=== PATIENT | female | born 1955 | race African-American/Black ===

== ENCOUNTER 2023-03-03 14:12 | Emergency (ER) | payer OTHER, SELFPAY ==
[2023-03-03 14:16] VITALS: BP 182/84; PULSE 97; RESP 20; TEMP 37.1; O2SAT 100; BMI 21.3
--- NOTE | 2023-03-03 14:31 | ED.DENTAL1 ---
HPI - Dental/Oral General Chief complaint: Dental/Oral Stated complaint: DENTAL PAIN Time Seen by Provider: 03/03/23 14:24 Source: patient Mode of arrival: walk-in Limitations: no limitations History of Present Illness HPI Narrative: patient is a 67-year-old female who presents to the emergency department for intermittent pain in the left upper jaw in tooth #16 for the last month. She states pain has been coming and going. Documentation shows that she felt a prescription of clindamycin from a dentist for a toothache in December, she states she does not currently have a dentist. She states [facility] was supposed to pull her tooth but they never did. She states for the last month she has had intermittent pain to the area. No drainage, no facial swelling or fevers. No difficulty swallowing. Related Data Previous Rx's Medication Instructions Recorded amoxicillin 500 mg capsule 500 mg PO TID 10 days #30 caps 03/03/23 tramadol 50 mg tablet 50 mg PO Q4H PRN pain #15 tabs 03/03/23 Allergies Allergy/AdvReac Type Severity Reaction Status Date / Time No Known Drug Allergies Allergy Verified 03/03/23 14:16 Review of Systems ROS Constitutional Denies: fever or chills Ears, nose, mouth, and throat Denies: throat pain or neck pain Respiratory Denies: shortness of breath Gastrointestinal Denies: nausea or vomiting Musculoskeletal Denies: back pain Integumentary/Breast Denies: rash Neurological Denies: headache Hematologic/Lymphatic Denies: easy bruising PFSH PFSH Social History Smoking status: Never smoker Exam Narrative Exam Narrative: Gen.: Awake, alert, in no distress Head: Normocephalic, atraumatic ENT: Moist mucous membranes, bilateral tympanic membranes clear, no mandibular maxillary swelling with tenderness over tooth #16, no abscess or root exposure noted. No drainage. No redness or swelling under the tongue. clear speech. Respiratory: No respiratory distress Extremities: Moves extremities equally Psych: Normal mood and affect Neuro: No focal neuro deficit Skin: Warm, dry, intact Constitutional Vital Signs, click to edit/add: Last Vital Signs Temp 98.8 F 03/03/23 14:16 Pulse 97 H 03/03/23 14:16 Resp 20 03/03/23 14:16 BP 182/84 H 10/24/23 14:16 Pulse Ox 100 03/03/23 14:16 O2 Del Method Room Air 03/03/23 14:16 Course Vital Signs Vital signs: Vital Signs Temperature 98.8 F 03/03/23 14:16 Pulse Rate 97 H 03/03/23 14:16 Respiratory Rate 20 03/03/23 14:16 Blood Pressure 182/84 H 03/03/23 14:16 Pulse Oximetry 100 03/03/23 14:16 Oxygen Delivery Method Room Air 03/03/23 14:16 Temperature 98.8 F 03/03/23 14:16 Pulse Rate 97 H 03/03/23 14:16 Respiratory Rate 20 03/03/23 14:16 Blood Pressure 182/84 H 03/03/23 14:16 Pulse Oximetry 100 03/03/23 14:16 Oxygen Delivery Method Room Air 03/03/23 14:16 MDM - Dental/Oral MDM Narrative Medical decision making narrative: patient treated with amoxicillin and a short course of analgesics as well as topical analgesics, follow-up with dentist and return to the Emergency Room if symptoms change or worsen. She was provided with a list of local dental providers. Medical Records Attestation: I reviewed the patient's medical records. Discharge Plan Discharge Chief Complaint: Dental/Oral Clinical Impression: Toothache Patient Disposition: Home, Self-Care Time of Disposition Decision: 14:29 Condition: Good Prescriptions / Home Meds: New amoxicillin 500 mg capsule 500 mg PO TID 10 Days Qty: 30 0RF tramadol 50 mg tablet 50 mg PO Q4H PRN (Reason: pain) Qty: 15 0RF Rx Instructions: DX: K08.89 Instructions: Toothache (ED) Stand Alone Forms: Portal Instructions Referrals: Physician,Non-Staff, MD [Primary Care Provider] - 1 week Discharge Date/Time: 03/03/23 14:48
[2023-03-03] MEDS: BENZOCAINE 30 ML, lidocaine HCL 15 ML MM (14:42)
== END 2023-03-03 14:48 | disposition home or self-care (01) ==
PROVIDERS: Emergency Provider Emergency Medicine
DX: K08.89 Other specified disorders of teeth and supporting structures (principal)
CPT/HCPCS: 99283